=== PATIENT | male | born 1970 | race Caucasian/White ===

== ENCOUNTER 2017-02-10 19:52 | Emergency (ER) | payer BC ==
--- NOTE | 2017-02-10 20:31 | ERNOTE ---
Lower Extremity HPI - Narrative Date of Service: 02/10/17 - General Lower Extremities Pain: ankle: right Time Seen by Provider: 02/10/17 20:31 Source: patient, RN notes reviewed Exam Limitations: no limitations - Immun/Allergies/Home Medications Immunizations: IMMUNIZATION HX Immunizations Up to Date Yes Allergies/Adverse Reactions: Allergies Allergy/AdvReac Type Severity Reaction Status Date / Time No Known Allergies Allergy Verified 02/10/17 20:11 Home Medications: HOME MEDICATIONS Zolpidem Tartrate [Ambien] 10 mg PO HS PRN 05/31/14 [Last Taken Unknown] - History of Present Illness Narrative: 46 y/o male ambulatory to the ED with an injury to his right ankle. He reports rolling the ankle while walking on rocks around noon today. He denies any prior problems with the ankle. He is having pain and swelling around the lateral malleolus. Date (Duration): 02/10/17 Time (Timing): 12:00 Location of Incident: work Method of Injury: Reports: twisted Loss of Consciousness: Reports: no loss of consciousness Associated Symptoms: Denies: unable to bear weight, snapping, popping sensation , weakness, sensory loss, other injuries Other Injuries: Reports: none Prior Treament: Denies: recently seen Review of Systems - Review of Systems Constitutional: Present: no symptoms reported EYE: Present: no symptoms reported ENT: Present: no symptoms reported Respiratory: Present: no symptoms reported Cardiology: Present: no symptoms reported Gastrointestinal/Abdominal: Present: no symptoms reported Genitourinary: Present: no symptoms reported Musculoskeletal: Present: joint pain, joint swelling Skin: Absent: lesions, change in color Neurological: Absent: weakness, numbness, tingling Endocrine: Present: no symptoms reported Hematologic/Lymphatic: Present: no symptoms reported Psych: Present: no symptoms reported - Patient's Past Medical History Patient History - Medical: No pertinent hx Patient History - Cardiac/Respiratory: No pertinent hx Patient History - Cancer: No Hx of Cancer Patient History - Surgical Procedures: Noncontributory, Other Patient History - Other: None - Social History Living Situations: spouse Psych History: No pertinent hx Smoking Status: Former smoker Alcohol Use: occasionally Drug Use: none - Immunizations Immunizations Up to Date: Yes Physical Exam - Physical Exam General Appearance: Present: wd/wn, alert, no apparent distress Respiratory: Present: no respiratory distress, no accessory muscle use Cardiovascular/Chest: Present: normal peripheral pulses Peripheral Pulses: N=norm/S=strong/W=weak/B=bound/A=absent: Dorsalis-pedis (R): Strong, Dorsalis-pedis (L): Strong Extremity Exam: Present: normal range of motion, joint swelling - Right lateral ankle, extremity edema - Right lateral ankle and foot, tender to palpation, no deformity or ecchymosis Neurological Exam: Present: alert, oriented, normal mood/affect, no motor/ sensory deficits Skin Exam: Present: normal color, warm/dry ED Progress - Vital Signs Patient's Vital Signs:: I have reviewed the patient's vital signs. Vital Signs: Vital Signs 02/10/17 20:06 Temperature 36.6 C Pulse Rate 110 H Respiratory 16 Rate Blood Pressure 150/91 O2 Sat by Pulse 98 Oximetry - X-Ray X-Ray #1 X-Ray: ankle Interpretation: Interp. by me X-ray Comments: Right ankle - soft tissue swelling laterally, questionable irregularity at distal tip of fibula, may be a mild avulsion fracture - Progress/Reassessment Chief Complaint: Ankle Injury/ Pain Progress:: Improved Plan - Plan Plan: TERRI wrap to right ankle, discussed a boot but we agreed that he may not be able to tolerate it d/t edema and pain currently, to f/u in occupational health - limited weight bearing until then Departure Clinical Impression: Avulsion fracture of distal fibula - Departure Disposition: Home Follow Up Needed Condition: Stable Instructions: Ankle Fracture, [id number] Additional Instructions: Wear TERRI wrap for support Ibuprofen 600 mg (3 tablets) every 6 hours with food for pain Ice/Elevate Light weight bearing until re-evaluation Referrals: Geraldine Oviedo, COMMUNITY DEVELOPMENT MANAGER [[facility]] -
[2017-02-10 21:23] VITALS: BP 140/72
== END 2017-02-10 21:20 | disposition home or self-care (01) ==
LOC: ER 19:52
DX: M84.463A Pathological fracture, right fibula, initial encounter for fracture (principal); X58.XXXA Exposure to other specified factors, initial encounter; Y93.01 Activity, walking, marching and hiking; Y92.9 Unspecified place or not applicable; Y99.0 Civilian activity done for income or pay

== ENCOUNTER 2017-05-20 13:26 | Emergency (ER) | payer BC ==
--- NOTE | 2017-05-20 14:24 | ERNOTE ---
Abdominal HPI - Narrative Date of Service: 05/20/17 - General Chief Complaint: Abdominal Pain Time Seen by Provider: 05/20/17 14:06 Source: patient, RN notes reviewed Exam Limitations: no limitations - Immun/Allergies/Home Medications Immunizatons: IMMUNIZATION HX Immunizations Up to Date Yes Allergies/Adverse Reactions: Allergies No Known Allergies Allergy (Verified 05/20/17 13:38) Home Medications: HOME MEDICATIONS Zolpidem Tartrate [Ambien] 10 mg PO HS PRN 05/31/14 [Last Taken Unknown] Xanax 03/30/17 [Last Taken Unknown] Cyclobenzaprine HCl [Flexeril] 10 mg PO TID PRN #30 tab 05/20/17 [Last Taken Unknown] Ibuprofen [Motrin] 600 mg PO Q6H PRN #60 tab 05/20/17 [Last Taken Unknown] - History of Present Illness Narrative: 46 year old male presents to the ED for left flank pain. It has been occurring intermittently for about 2 weeks. He denies any injury or any associated symptoms. He has not been taking anything for pain. He has had kidney stones in the past and reports that this pain is similar. Timing: intermittent Quality: moderate, aching Prior Abdominal Problems: Present: similar symptoms Prior Treatment: Absent: recently seen Review of Systems - Review of Systems Constitutional: Absent: fever, chills, malaise, decreased activity level EYE: Present: no symptoms reported ENT: Present: no symptoms reported Respiratory: Absent: shortness of breath, cough Cardiology: Absent: chest pain, edema Gastrointestinal/Abdominal: Absent: nausea, vomiting, abdominal pain Genitourinary: Absent: frequency, dysuria, hematuria, decreased urinary output Musculoskeletal: Present: back pain. Absent: neck pain, joint pain Skin: Absent: rash, lesions Neurological: Absent: headache, dizziness/light-headedness, weakness, numbness, tingling Endocrine: Present: no symptoms reported Hematologic/Lymphatic: Present: no symptoms reported Psych: Present: no symptoms reported - Patient's Past Medical History Patient History - Medical: No pertinent hx Patient History - Cardiac/Respiratory: No pertinent hx Patient History - Cancer: No Hx of Cancer Patient History - Surgical Procedures: Noncontributory, Other Patient History - Other: None - Social History Living Situations: spouse Psych History: No pertinent hx Smoking Status: Never smoker Alcohol Use: occasionally Drug Use: none - Immunizations Immunizations Up to Date: Yes Physical Exam - Physical Exam General Appearance: Present: wd/wn, alert, no apparent distress Head Exam: Present: normal inspection Neck: Present: normal inspection, nontender, supple, full range of motion Respiratory: Present: no respiratory distress, normal breath sounds, no accessory muscle use, chest nontender, lungs clear Cardiovascular/Chest: Present: regular rate, rhythm, no murmur Back Exam: Present: normal range of motion, no vertebral tenderness, CVA tenderness (L) Extremity Exam: Present: normal inspection, normal range of motion, no edema Neurological Exam: Present: alert, oriented, normal mood/affect Skin Exam: Present: normal color, warm/dry ED Progress - Vital Signs Patient's Vital Signs:: I have reviewed the patient's vital signs. Vital Signs: Vital Signs 05/20/17 13:27 Temperature 36.7 C Pulse Rate 78 Respiratory 14 Rate Blood Pressure 135/81 O2 Sat by Pulse 96 Oximetry - X-Ray X-Ray #1 X-Ray: thoracic Interpretation: Interp. by me X-ray Comments: Mild degenerative changes noted without any acute osseous abnormality - Progress/Reassessment Chief Complaint: Abdominal Pain Progress:: Unchanged Departure Clinical Impression: Left flank pain - Departure Disposition: Home Follow Up Needed Condition: Good Instructions: Thoracic Strain, [id number] Referrals: Sirena Schilling MD [Primary Care Provider] - Prescriptions: Cyclobenzaprine HCl [Flexeril] 10 mg PO TID PRN #30 tab PRN Reason: MUSCLE SPASMS Ibuprofen [Motrin] 600 mg PO Q6H PRN #60 tab PRN Reason: Pain
[2017-05-20 15:03] LABS: Urine Appearance Clear; Urine Bacteria None Seen; Urine Bilirubin Negative (NEGATIVE); Urine Blood Negative /ul (NEGATIVE); Urine Color Yellow; Urine Ketone Negative (NEGATIVE); Urine Nitrite Negative (NEGATIVE); Urine Protein Negative (NEGATIVE); Urine RBC None Seen /hpf (0-5); Urine Specific Gravity 1.025 SP.GR. (1.005-1.030); Urine Urobilinogen Normal (NORMAL); Urine WBC 0-5 /hpf (0-5); Urine pH 5.5 pH (5.0-7.0)
[2017-05-20 16:15] VITALS: BP 135/90
== END 2017-05-20 17:18 | disposition home or self-care (01) ==
LOC: ER 13:26
DX: R10.9 Unspecified abdominal pain (principal)